=== PATIENT | male | born 1985 | race Caucasian/White ===

== ENCOUNTER 2020-05-01 13:51 | Outpatient (REF) | payer OTHER, SELFPAY ==
[2020-05-01 14:23] LABS: COVID-19 Test Negative (Negative)
== END 2020-05-01 13:52 | disposition home or self-care (01) ==
LOC: HO.LAB 13:51
PROVIDERS: Visit Provider Internal Medicine
DX: Z20.828 Contact with and (suspected) exposure to other viral communicable diseases (principal)
CPT/HCPCS: 87635

== ENCOUNTER 2020-05-08 08:36 | Outpatient (REF) | payer OTHER, SELFPAY ==
[2020-05-08 10:34] LABS: COVID-19 Test Negative (Negative)
== END 2020-05-08 08:37 | disposition home or self-care (01) ==
LOC: HO.LAB 08:36
PROVIDERS: Visit Provider Internal Medicine
DX: Z20.828 Contact with and (suspected) exposure to other viral communicable diseases (principal)
CPT/HCPCS: 87635

== ENCOUNTER 2020-05-12 08:39 | Outpatient (REF) | payer OTHER, SELFPAY ==
[2020-05-12 09:25] LABS: COVID-19 Test Negative (Negative)
== END 2020-05-12 08:40 | disposition home or self-care (01) ==
LOC: HO.LAB 08:39
PROVIDERS: Visit Provider Internal Medicine
DX: Z20.828 Contact with and (suspected) exposure to other viral communicable diseases (principal)
CPT/HCPCS: 87635

== ENCOUNTER 2020-05-28 13:17 | Outpatient (REF) | payer OTHER, SELFPAY ==
[2020-05-28 13:37] LABS: COVID-19 Test Negative (Negative)
== END 2020-05-28 13:18 | disposition home or self-care (01) ==
LOC: HO.LAB 13:17
PROVIDERS: Visit Provider Internal Medicine
DX: Z20.828 Contact with and (suspected) exposure to other viral communicable diseases (principal)
CPT/HCPCS: 87635; C9803

== ENCOUNTER 2020-08-04 06:51 | Outpatient (REF) | payer OTHER, SELFPAY ==
[2020-08-04 07:09] LABS: COVID-19 Test Negative (Negative)
== END 2020-08-04 06:52 | disposition home or self-care (01) ==
LOC: HO.EMPCOV 06:51
PROVIDERS: Visit Provider Internal Medicine
DX: Z20.822 Contact with and (suspected) exposure to COVID-19 (principal)
CPT/HCPCS: 36415; 87635; C9803

== ENCOUNTER 2023-11-08 11:51 | Outpatient (AMB) | payer OTHER, SELFPAY ==
--- NOTE | 2023-11-08 11:53 | A.OFFVIS_ITS ---
Vital Signs 11/08/23 11:55 Height 6 ft 1 in Weight 214 lb 4.629 oz BMI 28.3 BP 148/83 H Blood Pressure Location Lt brachial Position Sitting Pulse 66 Intake Visit Reasons: Gastroesophageal reflux disease (GERD) Intake Note: New patient in office today for evaluation and management of GERD. CC: Patient states that he had covid in August and started taking Prednisone and ibuprofen, after that he noted his acid reflux got really bad. He is taking Omeprazole but continues to have acid reflux. He also reports blood in stool sometimes but he knows that he has hemorrhoids. 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 Patient reports acid reflux back in June on and off took omeprazole for short. If time and his symptoms got better.. Patient was treated for COVID with prednisone back in August and was taking ibuprofen and started with epigastric pain and burning. Patient noticed that some of the food would bother her more than others. Patient would experience postprandial abdominal bloating patient in epigastric area in left upper and left lumbar region. Patient denies any nausea or vomiting. Symptoms of constipation that eventually got better with diet change and trial of probiotics. Patient re started taking omeprazole, however he feels like it has not really working well. He continues to have epigastric pain. Patient admits to occasional blood after bowel movement. Admits to history of hemorrhoids. Patient is trying to eat healthy some diet modifications in partial improvement in symptoms PFSH Surgical History (Updated 11/08/23 @ 12:02 by APOLONIA Fabian) No pertinent past surgical history Family History (Updated 11/08/23 @ 12:02 by APOLONIA Fabian) Maternal Uncle Prostate cancer Social History (Updated 11/08/23 @ 12:02 by APOLONIA Fabian) Alcohol intake: current Alcohol intake frequency: a few times a month Alcohol type: beer Patient Tobacco Use Status: Never used Tobacco Review of Systems Const Denies weight gain and Denies weight loss ENT Reports no additional complaints, Denies dysphagia and Denies odynophagia Card Reports no additional complaints Resp Reports no additional complaints GI Reports abdominal pain (epigastric), Denies belching, Denies melena, Reports bloating, Denies change in bowel habits, Reports constipation, Denies dysphagia, Denies excessive flatus, Reports dyspepsia, Reports heartburn, Denies diarrhea, Denies loose stools, Denies nausea, Denies odynophagia and Denies vomiting Reports no additional complaints Musc Reports no additional complaints Neuro Reports no additional complaints Psych Reports no additional complaints Endo Reports no additional complaints Physical Exam Vital Signs: Last Vital Signs Pulse 66 11/08/23 11:55 BP 148/83 H 11/08/23 11:55 BMI result Body Mass Index 28.3 Const General: healthy appearing, no acute distress and well developed Nutritional Appearance: well nourished Orientation/consciousness: patient oriented x3 Resp Effort & Inspection: normal respiratory effort, able to speak in complete sentences, no tracheal deviation and symmetric chest movement Auscultation: clear to auscultation bilaterally Cardio Rate: regular rate GI Inspection: Yes normal to inspection and No distended Palpation (GI): Soft to palpation, not firm and Tenderness to palpation present (GI) Auscultation: normal bowel sounds General: Yes no CVA tenderness Back/Spine/Pelvis Back: no CVA tenderness Skin General skin exam: elasticity normal, turgor normal and dry skin Neuro General: patient oriented x3 Psych Appearance: grossly normal Mental Status: mental status grossly normal Assessment & Plan Assessment & Plan (1) Postprandial epigastric pain: Code(s): R10.13 - Epigastric pain (2) Dyspepsia: Code(s): R10.13 - Epigastric pain (3) Postprandial abdominal bloating: Code(s): R14.0 - Abdominal distension (gaseous) (4) Hernia of abdominal wall: Code(s): K43.9 - Ventral hernia without obstruction or gangrene Plan Postprandial epigastric discomfort acid reflux with dyspepsia without dysphagia or odynophagia. Will rule out H pylori, celiac, pancreatitis. Patient upper endoscopy. Treated with ibuprofen and prednisone for respiratory infection/COVID symptoms started after treatment. Differential diagnosis include gastritis, duodenitis, gastric or peptic ulcer, esophagitis, patient reports postprandial abdominal bloating, will rule out pancreatic insufficiency patient will do H pylori testing and will treat empirically if positive. Patient will be sent to General surgery for questioning of abdominal wall hernia. Tenderness noted during exam when patient was standing and coughing 15 cm from umbilical area to the left. Patient will be seen in the office after the procedure, sooner on as needed basis. He is agreeable to this plan and verbalizes understanding of instructions. He was given the opportunity to ask questions and all questions answered. Thank you for allowing me to participate in his care Orders: Orders H pylori Ag Stool Today K21.9 - Gastro-esophageal reflux disease without esophagitis Transglutaminase IgA Today R10.9 - Unspecified abdominal pain Lipase Today R10.9 - Unspecified abdominal pain Pancreatic Elastase-1 Today R10.9 - Unspecified abdominal pain Transglutaminase Ab IgG Today R10.9 - Unspecified abdominal pain Vitamin B12 and Folate Today R19.7 - Diarrhea, unspecified Vitamin D 25-OH (D2 and D3) Today E55.9 - Vitamin D deficiency, unspecified Liver Panel Today R74.01 - Elevation of levels of liver transaminase levels Referrals General Surgery Referral K43.9 - Ventral hernia without obstruction or gangrene Medications: New pantoprazole 20 mg PO DAILY 90 tabs 1RF Coding Level of Care Code New Pt Level 4 (94104) Diagnoses Postprandial epigastric pain R10.13 Dyspepsia R10.13 Postprandial abdominal bloating R14.0 Hernia of abdominal wall K43.9 Time Spent (min) 45 Comment 30 minutes spent with patient and additional 15 minutes spent reviewing his records
[2023-11-08 11:55] VITALS: BP 148/83; PULSE 66; BMI 28.3
== END 2023-11-08 14:18 | disposition home or self-care (01) ==
PROVIDERS: Visit Provider Nurse Practitioner Family
DX: R10.13 Epigastric pain (principal); R14.0 Abdominal distension (gaseous); K43.9 Ventral hernia without obstruction or gangrene
CPT/HCPCS: 99204

== ENCOUNTER → 2023-11-08 11:51 | Outpatient (BNVA) | payer OTHER, SELFPAY | PROVIDERS: Visit Provider Nurse Practitioner Family ==

== ENCOUNTER 2023-11-08 12:57 | Outpatient (AMB) | payer OTHER, SELFPAY ==
--- NOTE | 2023-11-08 13:05 | A.OFFVIS_ITS ---
Vital Signs 11/08/23 13:08 Height 6 ft 1 in Weight 214 lb BMI 28.2 BP 137/90 H Blood Pressure Location Rt brachial Position Sitting Pulse 76 Intake Visit Reasons: Ventral Hernia Intake Note: Patient referred by Tory Delaney (GI) for ? ventral hernia. Patient c/o: burning sensation LUQ that gets worse after eating certain foods. 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 Incidental finding was a question of a ventral/spigelian left hernia, just lateral to the umbilicus. Meantime, aside from reflux symptoms patient otherwise tolerating his diet, having regular bowel habits. Does occasionally do strenuous activities. Chart was reviewed patient evaluate [facility] Surgical History No pertinent past surgical history Family History Maternal Uncle Prostate cancer Social History Alcohol intake: current Alcohol intake frequency: a few times a month Alcohol type: beer Patient Tobacco Use Status: Never used Tobacco Physical Exam Vital Signs: Last Vital Signs Pulse 76 11/08/23 13:08 BP 137/90 H 11/08/23 13:08 BMI result Body Mass Index 28.2 GI Other: Patient was examined both supine and standing with Valsalva. Bilateral groin e xam negative. Genitalia within normal limits. Abdomen soft, benign. Patient has a possible left mid abdomen just lateral to the umbilicus spigelian hernia. Assessment & Plan Assessment & Plan (1) Spigelian hernia: Code(s): K43.9 - Ventral hernia without obstruction or gangrene Category: Surgical Plan Current plan is to obtain a sonogram of this area and direct further therapy based on these results. Patient will see me after the study. All questions answered. Coding Level of Care Code New Pt Level 4 (11929) Diagnoses Spigelian hernia K43.9
[2023-11-08 13:08] VITALS: BP 137/90; PULSE 76; BMI 28.2
== END 2023-11-08 13:19 | disposition home or self-care (01) ==
PROVIDERS: PCP Internal Medicine; Referring Provider Nurse Practitioner Family; Visit Provider Surgery
DX: K43.9 Ventral hernia without obstruction or gangrene (principal)
CPT/HCPCS: 99204

== ENCOUNTER 2023-11-10 11:18 | Day surgery (SDC) | payer OTHER, SELFPAY ==
--- OUTSIDE RECORDS SUMMARY | 2023-11-10 11:22 | XMS_ITS | Continuity of Care Document ---
Author Organization [facility] ter Address [address] [place] [id number] Care Team Providers Care Cellar Hand Name Role Phone Rivera Carmichael MD Primary Care Physician [phone] Encounter [facility] Date(s): 08/16/22 - 09/30/[address] [address] [place] Attending Physician: Rivera Carmichael MD Admitting Physician: Rivera Carmichael MD Referring Physician: Rivera Carmichael MD Patient Care team information Care Team Personnel Name: Rivera Carmichael MD Position: Reference Physician Member Role: PCP Address: Address: [address] [place] [address] Personal Primary Care and Weight Management [place], [place] [address]
--- NOTE | 2023-11-10 12:53 | MHC.SHP ---
Pre-Procedural Eval Section A - 24 Hr Update-Section A only Date of Service: 11/10/23 Section B - Complete if H&P > 30 days Chief Complaint: Epigastric pain,gerd, Relevant Family History (Specify if Yes): No Relevant Social History: None Present Medications: see Short Stay Collaborative assessment Medical History: Significant History (spigelian hernia) History of Previous Operations: No relevant previous surgery Allergies: Allergies Allergy/AdvReac Type Severity Reaction Status Date / Time No Known Allergies Allergy Verified 11/08/23 13:06 [No Known Allergies*] Review of Systems Sugical H&P ROS: Negative: Constitution, Cardiovascular, Respiratory, Neurological, Psychiatric, Hem-Onc, Allergic/Immunologic, Gastrointestinal, Genitourinary, Musculoskeletal, Integumentary, Endocrine and Eyes/Ears/Nose/Throat Exam Surgical H&P Exam: Normal: HEENT, Normal: Heart, Normal: Lungs, Normal: Extremities, Normal: Abdomen, Normal: Skin and Normal: Neurological Plan Diagnosis/Plan: Unchanged I have reviewed the history and physical and performed a pertinent physical examination on my patient. No changes have occurred unless specified. Time Spent With Patient Time: Total time managing care of this patient today ____ minutes.
--- NOTE | 2023-11-10 13:00 | P.CONAN_ITS ---
PMF Active Problems Active Problems: All Active Problems Spigelian hernia (Acute) Past Medical History Functional capacity: independent ambulation Family History Family History Maternal Uncle Prostate cancer Family history of problems with anesthesia: No Surgical History Surgical History No pertinent past surgical history History of Problems with Anesthesia: No Social History Social History Alcohol intake: current Alcohol intake frequency: a few times a month Alcohol type: beer Patient Tobacco Use Status: Never used Tobacco Advance Directives: No Advance Directives Information Provided: Yes Meds Allergies Allergy/AdvReac Type Severity Reaction Status Date / Time No Known Allergies Allergy Verified 11/08/23 13:06 [No Known Allergies*] Home Medications ?Medication ?Instructions ?Recorded ?Confirmed ?Last Taken ?Type cetirizine 10 mg tablet 10 mg PO DAILY PRN 11/08/23 Unknown History famotidine 20 mg tablet (Acid 20 mg PO BEDTIME 11/08/23 Unknown History Weather Reporter (famotidine)) lactobacillus combo no.11 15 1 cap PO DAILY 11/08/23 Unknown History billion cell sprinkle capsule (Probiotic) Exam Airway Mallampati Class: II TM Dist: >3cm Neck ROM: Full Heart: RRR Lungs: CTA Assessment and Plan Final Anesthetic Review Family History of Problems with Anesthesia: No History of Problems with Anesthesia: No ASA Class: II Final Preanesthetic Review: Meds/Allgs Chart Reviewed, Consent Obtained/Reviewed and Anes Risks/Benef Reviewed Patient Risk: Low Procedure Risk: Low Anesthetic Plan Anesthetic Plan: MAC: Disposition: Standard PACU
[2023-11-10 13:11] VITALS: BP 152/96; PULSE 67; RESP 18; TEMP 36.5; O2SAT 100; BMI 27.7
[2023-11-10] MEDS: Lactated Ringers 1,000 ML 999 ML IV (13:18)
--- NOTE | 2023-11-10 14:02 | W.PM.OPN ---
Operative Note Operative Note Date of Service: 11/10/23 Narrative: Procedure Description: EGD Indication: epigastric pain Anesthesia: MAC FLEXIBLE TRANSORAL UPPER GASTROINTESTINAL ENDOSCOPY UPPER ENDOSCOPY Consent: Indications for the procedure and potential complications of bleeding, perforation, reaction to medications and missed diagnosis were discussed with the patient and informed consent was obtained. Instrument: Olympus GIF H 190 J mid size upper endoscope Monitoring: Vital signs and clinical assessment, continuous EKG monitoring, Pulse oximetry, Carbon Dioxide monitoring and blood pressure monitoring were done throughout the procedure. Procedure: The patient was placed in the left lateral decubitis position and pre-procedure medications were administered and a bite block was placed. The endoscope was inserted into the mouth and advanced under direct vision to the third part of duodenum. A careful inspection was made as the upper endoscope was withdrawn including a retroflexed examination of the proximal stomach; Findings and interventions are described below. Findings: Larynx:normal Esophagus: GE junction at 42 cm, diaphragm hiatus at 42 cm, normal mucosa -bx taken from distal and proximal esophagus Stomach: Patchy erythema . Biopsies were obtained. Grade 2 flap valve on retroflexed examination of the cardia. Duodenum: Normal bulb and descending duodenum, bx taken Intervention: Biopsies as noted above, Impression/Findings: gastritis PLAN: consider changing PPI, and check nsaid hx patient admits to xs stress, can maybe try small dose of TCA if ongoing sx to over for functional dyspepsia
[2023-11-10 14:09] VITALS: BP 145/100; PULSE 96; RESP 16; TEMP 36.7; O2SAT 98
[2023-11-10 14:14] VITALS: BP 143/97; PULSE 80; RESP 16; O2SAT 98
[2023-11-10 14:29] VITALS: BP 138/93; PULSE 70; RESP 16; TEMP 36.7; O2SAT 98
--- NOTE | 2023-11-10 14:43 | HO.POSTANES ---
Post Anesthesia Evaluation Post Anesthesia Evaluation Date of Service: 11/10/23 Vital Signs: Vital Signs Temp Pulse Resp BP Pulse Ox O2 Del Method 11/10/23 14:29 98.1 F 70 16 138/93 H 98 Room Air 11/10/23 14:14 80 16 143/97 H 98 Room Air 11/10/23 14:09 98.1 F 96 16 145/100 H 98 Room Air 11/10/23 13:11 97.7 F 67 18 152/96 H 100 Room Air Anesthesia: Monitored Mental Status: Awake Pain Control: Satisfactory Nausea/Vomiting: None Hydration: Adequate Anesthesia-Related Issues: No Anes. Related Issues
== END 2023-11-10 15:17 | disposition home or self-care (01) ==
PROVIDERS: PCP Internal Medicine; Visit Provider Internal Medicine Gastroenterology
PROC: 0DJ08ZZ Inspection of Upper Intestinal Tract, Via Natural or Artificial Opening Endoscopic (ICD-10-PCS; CPT 43235; principal; 2023-11-10 14:40)
DX: R10.13 Epigastric pain (principal); K21.9 Gastro-esophageal reflux disease without esophagitis; K29.60 Other gastritis without bleeding; K44.9 Diaphragmatic hernia without obstruction or gangrene; K43.9 Ventral hernia without obstruction or gangrene; Z79.899 Other long term (current) drug therapy; Z86.16 Personal history of COVID-19
CPT/HCPCS: 43239; 88305; 88313; 88342; J1596; J2704

== ENCOUNTER → 2023-11-10 11:18 | Outpatient (BNV) | payer OTHER, SELFPAY | PROVIDERS: PCP Internal Medicine; Visit Provider Internal Medicine Gastroenterology | DX: K29.70 Gastritis, unspecified, without bleeding (principal) | CPT/HCPCS: 43239 ==

== ENCOUNTER 2023-11-18 10:35 | Outpatient (REF) | payer OTHER, SELFPAY ==
[2023-11-18 13:51] LABS: Alanine Aminotransferase 138 U/L (0-40); Albumin Level 4.7 g/dL (3.5-5.0); Alkaline Phosphatase 58 U/L (39-117); Aspartate Amino Transferase 62 U/L (5-37); Bilirubin Direct 0.2 mg/dL (0.0-0.5); Bilirubin Total 0.5 mg/dL (0.0-1.0); Lipase 25 U/L (8-78); Total Protein 7.6 g/dL (6.5-8.0)
[2023-11-18 14:26] LABS: Folate 7.2 ng/mL (> or = 4.0); Vitamin B12 445 pg/mL (200-900)
[2023-11-21 17:13] LABS: Transglutaminase Ab IgG <1.0 U/mL; Transglutaminase IgA <1.0 U/mL
[2023-11-22 16:17] LABS: Vitamin D 25-OH, D2 <4 ng/mL; Vitamin D 25-OH, D3 34 ng/mL; Vitamin D 25-OH, Total 34 ng/mL (30-100)
== END 2023-11-18 10:36 | disposition home or self-care (01) ==
LOC: HO.HMGCLDS 10:35
PROVIDERS: PCP Internal Medicine; Visit Provider Nurse Practitioner Family
DX: R10.9 Unspecified abdominal pain (principal); E55.9 Vitamin D deficiency, unspecified; R47.01 Aphasia; R19.7 Diarrhea, unspecified
CPT/HCPCS: 36415; 80076; 82306; 82607; 82746; 83690; 86364

== ENCOUNTER 2023-11-18 15:24 | Outpatient (REF) | payer OTHER, SELFPAY ==
--- NOTE | ~2023-11-18 | US_ITS ---
EXAMINATION: US ABDOMEN LIMITED CLINICAL INFORMATION: Elevated LFTs. COMPARISON: None available. TECHNIQUE: Real-time imaging of the right upper quadrant abdominal viscera. Limited visualization due to bowel gas. FINDINGS: PANCREAS: Limited visualization of pancreatic tail and head. Imaged portion of pancreatic body is unremarkable. LIVER: Right hepatic lobe measures 14.8 cm in sagittal dimension. Borderline mildly increased hepatic parenchymal heterogeneity and echogenicity could be associated with hepatocellular disease/hepatic steatosis and substantially limits visualization. Correlation with liver function tests and clinical exam recommended to determine further management. GALLBLADDER: No gallstones. No gallbladder wall thickening. COMMON BILE DUCT: Normal in caliber measuring 0.22 cm in diameter. RIGHT KIDNEY: No hydronephrosis. No renal calculi. Limited visualization. The kidney measures 11.1 cm in maximum dimension. FREE FLUID: None. US/US abdomen limited IMPRESSION: Borderline mildly increased hepatic parenchymal heterogeneity and echogenicity could be associated with hepatocellular disease/hepatic steatosis and substantially limits visualization. Correlation with liver function tests and clinical exam recommended to determine further management.
== END 2023-11-18 15:25 | disposition home or self-care (01) ==
LOC: HO.HMGCX 15:24
PROVIDERS: PCP Internal Medicine; Visit Provider Nurse Practitioner Family
DX: K43.9 Ventral hernia without obstruction or gangrene (principal)
CPT/HCPCS: 76705

== ENCOUNTER 2023-11-23 14:47 | Outpatient (REF) | payer OTHER, SELFPAY ==
[2023-11-23 16:25] LABS: Hematocrit 43.9 % (42.0-52.0); Mean Corpuscular HGB Conc 34.2 g/dl (31.0-36.0); Mean Corpuscular Hemoglobin 30.6 pg (27.0-33.0); Mean Corpuscular Volume 89.6 fL (80.0-98.0); Mean Platelet Volume 9.2 fL (9.4-12.4); Platelet Count 324 X10*3/uL (160-400); Red Cell Distribution Width 12.8 % (11.0-16.0); White Blood Count 5.5 X10*3/uL (4.8-10.8)
[2023-11-23 19:16] LABS: C Reactive Protein < 0.10 mg/dL (< or = 0.50); Iron 104 mcg/dL (45-160); Percent Iron Saturation 33 % (15-50); Total Iron Binding Capacity 312 mcg/dL (228-428); Unsaturated Iron Binding 208 ug/dL
[2023-11-23 19:27] LABS: Ferritin 79 ng/mL (20-250)
[2023-11-24 04:24] LABS: HBS Num1 132.27 mIU/mL (0-7.99); HBc Num1 0.12 S/CO (0.00-0.79); HBsAGNum1 0.26 S/CO (0.00-0.99); Hepatitis B Core Antibody Nonreactive (Nonreactive); Hepatitis B Surface Antigen Negative (Negative); ~HepC Num1 0.07 S/CO (0.00-0.79); ~Hepatitis B Surface Antibody REACTIVE (Nonreactive); ~Hepatitis C Antibody Nonreactive (Nonreactive)
[2023-11-24 05:03] LABS: Hepatitis A Antibody IgM 0.15 Index (0-0.79); ~Hepatitis A Antibody IgM Nonreactive (Nonreactive)
[2023-11-25 18:44] LABS: Ceruloplasmin 26 mg/dL (18-36)
[2023-11-28 11:53] LABS: Mitochondrial Antibodies NEGATIVE (NEGATIVE)
[2023-11-28 13:17] LABS: Alpha Fetoprotein 3.7 ng/mL (<6.1)
[2023-11-29 13:38] LABS: Smooth Muscle Antibody <20 U (<20)
== END 2023-11-23 14:48 | disposition home or self-care (01) ==
LOC: HO.HMGCLDS 14:47
PROVIDERS: PCP Internal Medicine; Visit Provider Nurse Practitioner Family
DX: R79.89 Other specified abnormal findings of blood chemistry (principal); D64.9 Anemia, unspecified; R74.8 Abnormal levels of other serum enzymes; K58.9 Irritable bowel syndrome, unspecified; K21.9 Gastro-esophageal reflux disease without esophagitis
CPT/HCPCS: 36415; 82105; 82390; 82728; 83540; 85027; 85610; 86015; 86140; 86381; 86704; 86706; 86709; 86803; 87340

== ENCOUNTER 2023-11-23 18:06 | Outpatient (REF) | payer OTHER, SELFPAY ==
[2023-12-03 20:07] LABS: Pancreatic Elastase-1 >500 mcg/g
== END 2023-11-23 18:07 | disposition home or self-care (01) ==
LOC: HO.HMGCLNP 18:06
PROVIDERS: Visit Provider Nurse Practitioner Family
DX: K21.9 Gastro-esophageal reflux disease without esophagitis (principal); R10.9 Unspecified abdominal pain
CPT/HCPCS: 82656; 87338

== ENCOUNTER 2023-11-28 12:47 | Outpatient (REF) | payer OTHER, SELFPAY ==
--- NOTE | ~2023-11-28 | US_ITS ---
EXAMINATION: US ABDOMEN LIMITED WITH LIVER ELASTOGRAPHY CLINICAL INFORMATION: Left ventral hernia; elevated liver function tests. COMPARISON: Abdominal ultrasound dated 11/18/2023. TECHNIQUE: Real-time imaging of the abdominal viscera. Noninvasive ultrasound liver fibrosis assessment is performed using Phuc ElastPQ point quantification shear wave elastography (2D-SWE) with a C5-2 MHz transducer. Multiple elastography samples are obtained. FINDINGS: ABDOMINAL AORTA: The proximal, mid, and distal segments are normal in caliber. INFERIOR VENA CAVA: Visualized portions are normal. LIVER: Normal. The liver demonstrates normal size, contour and echogenicity. No focal lesion or intrahepatic biliary duct dilatation. The right lobe measures 16.9 cm in length. The left lobe measures 11.1 cm in length. Portal flow is towards the liver (hepatopetal). Shear wave liver elastography median stiffness is 1.98 m/s (reference: normal median stiffness is 1.3 m/s or less). IQR/median stiffness to assess sampling precision is 0.07 (reference: good quality data set is IQR/median stiffness of 0.15 or less). LEFT KIDNEY: Normal. No hydronephrosis. No renal calculi or focal parenchymal lesions. The kidney measures 11.1 cm in maximum dimension. SPLEEN: Normal. The spleen measures 11.4 cm in maximum dimension. FREE FLUID: None. OTHER: No ventral hernia defect is noted. US/US abdomen hernandez w elastography IMPRESSION: Liver elastography: Although measurements are suggestive of compensated advanced chronic liver disease, there is statistical variability of the sampling which decreases accuracy. REFERENCE: Society of Radiologists in Ultrasound Liver Stiffness Thresholds (2020): LIVER STIFFNESS THRESHOLDS: *Liver Stiffness equal or less than 1.3 m/s: High probability of being normal. *Liver Stiffness less than 1.7 m/s: In the absence of other known clinical signs, rules out compensated advanced chronic liver disease. *Liver Stiffness 1.7-2.1 m/s: Suggestive of compensated advanced chronic liver disease but need further test for confirmation. *Liver Stiffness over 2.1 m/s: Rules in compensated advanced chronic liver disease. *Liver Stiffness over 2.4 m/s: Suggestive of clinically significant portal hypertension. QUALITY OF DATA SET: *IQR/Median value equal or less than 0.15 implies a quality data set. *IQR/Median value over 0.15 implies a poor quality data set. SIGNIFICANT CHANGE FROM PRIOR EXAM: Significant change if liver stiffness measurement is 10% or greater from prior exam. OTHER CONSIDERATIONS: The stage of liver fibrosis may be overestimated in the setting of acute hepatitis, liver inflammation, elevated liver function tests, hepatic vascular congestion, obstructive cholestasis, non-fasting state, and infiltrative diseases such as amyloidosis and lymphoma. In some patients with NAFLD, the liver stiffness thresholds for compensated advanced chronic liver disease may be lower. In causes other than viral hepatitis and NAFLD, liver stiffness thresholds are not well established.
== END 2023-11-28 12:48 | disposition home or self-care (01) ==
LOC: HO.US 12:47
PROVIDERS: PCP Internal Medicine; Visit Provider Nurse Practitioner Family
DX: R79.89 Other specified abnormal findings of blood chemistry (principal)
CPT/HCPCS: 76705; 76981

== ENCOUNTER 2023-12-14 10:00 | Outpatient (REF) | payer OTHER, SELFPAY ==
[2024-01-03 17:43] LABS: FIB-ALT 35 U/L (9-46); FIB-Alpha-2-Macroglobulin 181 mg/dL (106-279); FIB-Apolipoprotein A1 166 mg/dL (94-176); FIB-GGT 29 U/L (3-90); FIB-Haptoglobin 100 mg/dL (43-212); FIB-Total Bilirubin 0.5 mg/dL (0.2-1.2); Liver Fibrosis Score 0.13; Liver Fibrosis Stage F0; Nec Inflam Act Grade A0; Nec Inflam Act Score 0.15
== END 2023-12-14 10:01 | disposition home or self-care (01) ==
LOC: HO.HMGCLDS 10:00
PROVIDERS: Visit Provider Nurse Practitioner Family
DX: R74.8 Abnormal levels of other serum enzymes (principal)
CPT/HCPCS: 36415; 81596

== ENCOUNTER 2024-01-09 09:26 | Outpatient (REF) | payer OTHER, SELFPAY ==
[2024-01-11 23:18] LABS: TS Negative Control Passed; TS Panel A 0; TS Panel B 0; TS Positive Control Passed; TSpotTB Negative (Negative)
== END 2024-01-09 09:27 | disposition home or self-care (01) ==
LOC: HO.HMGCLDS 09:26
PROVIDERS: PCP Internal Medicine; Visit Provider Physician Assistant
DX: Z11.1 Encounter for screening for respiratory tuberculosis (principal)
CPT/HCPCS: 36415; 86481